=== PATIENT | female | born 2000 | race Caucasian/White ===

== ENCOUNTER 2022-03-21 17:49 | Emergency (ER) | payer SELFPAY ==
[~2022-03-21] VITALS: Ht 170.2 cm; Wt 81.6 kg
[2022-03-21 19:06] LABS: CLARITY,URINE CLEAR (CLEAR); COLOR,URINE YELLOW (YELLOW); KETONES,URINE NEGATIVE (NEGATIVE); LEUKOCYTE ESTERASE ,URINE SMALL (NEGATIVE); NITRITE,URINE NEGATIVE (NEGATIVE); PROTEIN,URINE DIPSTICK NEGATIVE (NEGATIVE); URINE UROBILINOGEN 0.2 mg/dL (0.2 - 1)
[2022-03-21 19:09] LABS: BACTERIA,URINE RARE /HPF; EPITHELIAL CELLS,URINE FEW /LPF; RBC,URINE 0-5 /HPF (0-5)
[2022-03-21 19:10] LABS: MUCUS,URINE FEW (RARE)
[2022-03-21] MEDS ORDERED: MACROBID 100 M100 MG PO (19:14)
[2022-03-21 21:49] VITALS: BP 121/84
== END 2022-03-21 21:50 | disposition home or self-care (01) ==
LOC: ER 18:51
DX: O26.891 Other specified pregnancy related conditions, first trimester (principal); R59.0 Localized enlarged lymph nodes; R82.71 Bacteriuria
CPT/HCPCS: 76801; 76817; 81001; 99283